=== PATIENT | female | born 1985 | race Caucasian/White ===

== ENCOUNTER 2017-09-10 10:51 | Emergency (ER) | payer OTHER ==
[2017-09-10 12:14] VITALS: BP 106/85
--- NOTE | 2017-09-10 12:22 | UC ---
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 She is here with her . recently moved from [place]. states that the cough was much worse earlier this week and better. she is flying to [place] tomorrow for business all week. denies (IUD). denies wheezing. 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 - History of Current Complaint Chief Complaint: UCRespiratory Stated Complaint: RESPIRATORY Time Seen by Provider: 09/10/17 12:16 Hx Last Menstrual Period: 08/27/17 - Allergies/Home Medications Allergies/Adverse Reactions: Allergies Allergy/AdvReac Type Severity Reaction Status Date / Time seasonal Allergy Congestion Uncoded 09/10/17 12:14 Home Medications: Home Medications Jclymycgnyl-[id number] C- [Glucosamine Chondroitin] 1 tab PO DAILY [History Confirmed 09/10/17] Levonorgestrel (Iud) [Mirena IUD] 20 mcg IU DAILY 09/10/17 [History Confirmed ] Garner-3 Fatty Acids [Fish Oil] 1,400 mg PO DAILY 09/10/17 [History Confirmed ] PMH/Surg Hx/FS Hx/Imm Hx Previously Healthy: Yes - Surgical History Surgical History: None - Family History Known Family History: Negative: Other - no asthma - Social History Alcohol Use: Daily Substance Use Type: None Smoking Status (MU): Never Smoked Tobacco Review of Systems Constitutional: Fever, Fatigue Skin: Negative Eyes: Negative ENT: Negative Respiratory: Cough Cardiovascular: Negative Gastrointestinal: Negative Genitourinary: Negative Motor: Negative Neurovascular: Negative Musculoskeletal: Negative Neurological: Negative Psychological: Negative Is Patient Immunocompromised?: No All Other Systems Reviewed And Are Negative: Yes Physical Exam Triage Information Reviewed: Yes Appearance: Ill-Appearing - very pleasant and smiling Vital Signs: Initial Vital Signs Temp 99.1 F 09/10/17 12:06 Pulse 80 09/10/17 12:06 Resp 12 09/10/17 12:06 BP 106/85 09/10/17 12:06 Pulse Ox 98 09/10/17 12:06 Eye Exam: Normal ENT: Positive: Hearing grossly normal, Pharyngeal erythema, TMs normal. Negative: TM bulging, TM dull, TM red Dental Exam: Normal Neck exam: Normal Neck: Positive: Supple, Nontender, No Lymphadenopathy Respiratory: Positive: No respiratory distress, Decreased breath sounds, Rhonchi , Wheezing Cardiovascular Exam: Normal Cardiovascular: Positive: RRR, No Murmur, Pulses Normal, Brisk Capillary Refill Abdomen Description: Positive: Nontender, Soft Musculoskeletal Exam: Normal Neurological Exam: Normal Psychological Exam: Normal Skin Exam: Normal UC Diagnostic Evaluation - Laboratory O2 Sat by Pulse Oximetry: 98 Respiratory Course/Dx - Course Course Of Treatment: CXR- lingular pneumonia. explained significance of dx and need for rest. adv against going on trip for work this week. -name to est w / PCP given as they are new to the area. tehy are very agreeable with today's plan. - Differential Dx/Diagnosis Differential Diagnosis/HQI/PQRI: Asthma, Laryngitis, Lower Resp Infection, Sinusitis Provider Diagnoses: pneumonia Discharge - Discharge Plan Condition: Stable Disposition: HOME Prescriptions: Albuterol HFA INHALER* [Ventolin HFA Inhaler*] 2 puff INH Q4H PRN #1 mdi PRN Reason: Cough Cefdinir [Cefdinir 300 MG CAP] 300 mg PO BID #20 cap predniSONE TAB* [Deltasone TAB*] 40 mg PO DAILY #10 tab Patient Education Materials: Pneumonia (ED) Forms: *Work Release Referrals: [facility] [Provider Group] - 2 Days Non Staff,Doctor [Primary Care Provider] - Additional Instructions: -Make sure to take a probiotic daily while on antibiotics to help prevent a potential complication of antibiotic use called c diff. Some well known brands that can be found OTC are florastor, [employer] and [employer]. Make sure to complete the entire prescription unless advised otherwise by your health care provider. -We discusse risks of prednisone including but not limited to anxiety, agitation , insomnia, GI upset, elevated blood pressures and blood sugar readings, adrenal crisis and avascular necrosis of the hip. -Make sure to get a follow up chest xray in ~ 4 wks -Out of work note for 3 days. I advise not to travel this week because of severity of diagnosis and potential for communicability of disease.
--- NOTE | 2017-09-10 13:00 | RAD ---
INDICATION: Cough for 12 days. Loss of appetite. Wheezing worse at night. COMPARISON: No relevant prior exams available on the [facility] PACS for comparison. TECHNIQUE: Dual energy PA and routine lateral views of the chest were obtained. REPORT: Subtle airspace consolidation at the level of the lingula. Negative for pleural effusion or pneumothorax. The heart, pulmonary vasculature, and mediastinal contours are unremarkable. IMPRESSION: Lingular airspace consolidation most consistent with pneumonia.
== END 2017-09-10 13:45 | disposition home or self-care (01) ==
LOC: UCCORT 10:51
DX: J18.9 Pneumonia, unspecified organism (principal); J30.2 Other seasonal allergic rhinitis
CPT/HCPCS: 71020; 99202; G0463